=== PATIENT | male | born 1985 | race Hispanic/Latino ===

== ENCOUNTER 2020-02-14 17:54 | Emergency (ER) | payer SELFPAY ==
[~2020-02-14] VITALS: Ht 167.6 cm; Wt 81.8 kg
[2020-02-14 19:00] LABS: HEMATOCRIT 43.7 % (39.0-50.0); IMMATURE GRANULOCYTES 0.2 % (0.0-5.0); MEAN CELL VOLUME 89.9 fL CALC (80.0-100.0); MEAN CORPUSCULAR HGB 28.8 pG CALC (26.0-32.0); NEUT# 1.84 thou/uL (1.82-7.42); RED BLOOD COUNT 4.86 mill/uL (4.70-6.10); RED CELL DISTRI WIDTH 13.7 % (11.5-15.5)
[2020-02-14 19:40] LABS: ALBUMIN 4.3 g/dL (3.2-5.0); ALKALINE PHOSPHATASE 100 u/l (38-126); ANION GAP 11 (6-22 (CALC)); BILIRUBIN, TOTAL 0.2 mg/dL (0.0-1.4); BUN 15 mg/dL (9-20); BUN/CREATININE RATIO 20 (12-20 (CALC)); CARBON DIOXIDE 24 mmol/l (22-30); CHLORIDE 106 mmol/l (95-108); CREATININE 0.8 mg/dL (0.7-1.3); GFR > 60 ML/MIN (>=60 (CALC)); GFR FOR AFR.AMER. > 60 ML/MIN (>=60 (CALC)); POTASSIUM 3.5 mmol/l (3.5-5.1); SGOT/AST 77 u/l (17-59); SODIUM 138 mmol/l (137-146)
[2020-02-14] MEDS ORDERED: NAPROXEN500 MG PO (20:27)
[2020-02-14 20:40] VITALS: BP 115/73
--- NOTE | 2020-02-27 09:19 | NUR ---
Notified of positive Covid results by Kaycee Barton, oracle dba. Patient states he was tested over the weekend and was told he was negative. Advised him to quarantine until he is contacted by [facility] with further instructions. Patient verbalized understanding.
== END 2020-02-14 20:40 | disposition home or self-care (01) | DRG 179 ==
LOC: ED 17:54
PROVIDERS: Family Medicine
DX: U07.1 COVID-19 (principal)

== ENCOUNTER 2021-08-19 13:39 | Emergency (ER) | payer SELFPAY ==
[~2021-08-19] VITALS: Ht 167.6 cm; Wt 95.0 kg
[~2021-08-19 13:39] MED LIST: NAPROXEN500 MG PO
[2021-08-19 15:50] VITALS: BP 122/73
== END 2021-08-19 15:52 | disposition home or self-care (01) | DRG 179 ==
LOC: ED 13:39
DX: U07.1 COVID-19 (principal)